=== PATIENT | male | born 1965 | race Two or more races ===

== ENCOUNTER 2018-07-02 18:59 | Emergency (ER) | payer OTHER ==
[~2018-07-02] VITALS: Ht 167.6 cm; Wt 83.9 kg
[2018-07-02] MEDS ORDERED: TETRACAINE HCL/PF 0.5% UD 2 ML BOTTLE ONE (20:10)
[2018-07-02] MEDS ORDERED: FLUORESCEIN SODIUM OPHTH 1 EA STRIP ONE (20:12)
[2018-07-02] MEDS ORDERED: ERYTHROMYCIN BASE OPHTH 3.5 GM TUBE ONE (20:23)
--- NOTE | 2018-07-02 20:25 | NUR ---
PT WAS SEEN BY . EN TO GET A CHRISTO LENS IN BILATERAL EYES AND SLUGHED WITH 2L NS PER EYE.
[2018-07-02] MEDS ORDERED: TETRACAINE HCL/PF 0.5% UD 2 ML BOTTLE OP ONE (20:30)
[2018-07-02] MEDS ORDERED: ERYTHROMYCIN BASE OPHTH 3.5 GM TUBE OP ONE (20:30)
[2018-07-02] MEDS ORDERED: FLUORESCEIN SODIUM OPHTH 1 EA STRIP OP ONE (20:30)
--- NOTE | 2018-07-02 21:47 | NUR ---
PT REC'D MEDICATION ORDERED.
--- NOTE | 2018-07-02 21:51 | NUR ---
Patient discharged to home in stable condition. Written and verbal after care instructions given. Patient verbalizes understanding of instruction AND RX. PT AMBULATED OUT WITH A STEADY GAIT. PT'S IS DRIVING PT HOME. VSS.
[2018-07-02 21:55] VITALS: BP 135/89
== END 2018-07-02 21:55 | disposition home or self-care (01) ==
LOC: ER 19:02
DX: T20.50XA Corrosion of first degree of head, face, and neck, unspecified site, initial encounter (principal); H10.213 Acute toxic conjunctivitis, bilateral; Y93.89 Activity, other specified; Y92.89 Other specified places as the place of occurrence of the external cause; Y99.8 Other external cause status
CPT/HCPCS: A4606; J7030; Z7610